=== PATIENT | female | born 1980 | race Caucasian/White ===

== ENCOUNTER 2019-08-14 07:00 | Inpatient (IN) | payer OTHER ==
[~2019-08-14] VITALS: Ht 157.5 cm; Wt 98.9 kg
[2019-08-14] MEDS ORDERED: CHILDREN'S ASPI81 MG PO (08:21)
[2019-08-21] MEDS ORDERED: PRENATAL PLUS1 EAC2 PO (06:46)
== END 2019-08-24 17:48 | disposition home or self-care (01) | DRG 785 ==
LOC: OB/GYN 08-19 07:00 → O/R 08-21 06:00 → OB/GYN 08-21 18:19
PROVIDERS: ADMIT Obstetrics & Gynecology
PROC: 0UL70ZZ Occlusion of Bilateral Fallopian Tubes, Open Approach (ICD-10-PCS; 2019-08-21)
PROC: 4A1HXCZ Monitoring of Products of Conception, Cardiac Rate, External Approach (ICD-10-PCS; 2019-08-21)
PROC: 10D00Z1 Extraction of Products of Conception, Low, Open Approach (ICD-10-PCS; principal; 2019-08-21 11:15)
DX: O82 Encounter for cesarean delivery without indication (principal); Z3A.37 37 weeks gestation of pregnancy; Z37.0 Single live birth; Z30.2 Encounter for sterilization